=== PATIENT | female | born 1985 | race Caucasian/White ===

== ENCOUNTER 2019-03-14 18:53 | Emergency (ER) | payer MEDICAID ==
[~2019-03-14] VITALS: Ht 167.6 cm; Wt 70.8 kg
[2019-03-14 19:21] VITALS: Ht 167.6 cm; Wt 70.8 kg
[2019-03-14 21:01] LABS: CALCIUM 8.6 mg/dL (8.5-10.1); CARBON DIOXIDE 28.4 mmol/L (21-32); CHLORIDE SERUM 103 mmol/L (98-107); CREATININE SERUM 0.9 mg/dL (0.6-1.0); GFR1 > 60 mL/min; GLUCOSE SERUM 72 mg/dL (74-106); POTASSIUM SERUM 3.7 mmol/L (3.5-5.1); SODIUM SERUM 138 mmol/L (136-145)
[2019-03-14 21:02] LABS: BASOPHIL % 0.5 % (0-2); PLATELET COUNT 261 x10^3mcL (130-400); RED CELL DISTRIBUTION WIDTH 13.9 % (11.5-14.5)
[2019-03-14 21:06] LABS: ALBUMIN 3.4 g/dL (3.4-5.0); ALKALINE PHOSPHATASE 61 U/L (46-116); ALT/SGPT 13 U/L (14-59); AST/SGOT 6 U/L (15-37); BILIRUBIN TOTAL 0.67 mg/dL (0.20-1.00); TOTAL PROTEIN, SERUM 7.6 g/dL (6.4-8.2)
[2019-03-14 21:23] LABS: microscopic required? NO
[2019-03-14 21:30] LABS: UA SPECIFIC GRAVITY 1.025 (1.005-1.035); urine erythrocyte NEGATIVE (NEGATIVE)
[2019-03-15 00:36] VITALS: BP 115/88
== END 2019-03-15 00:36 | disposition home or self-care (01) ==
LOC: ED 18:53
PROVIDERS: Student in an Organized Health Care Education/Training Program
DX: R07.89 Other chest pain (principal); F31.9 Bipolar disorder, unspecified; R11.10 Vomiting, unspecified; R05 Cough; M25.512 Pain in left shoulder; Z98.51 Tubal ligation status; Z88.1 Allergy status to other antibiotic agents
CPT/HCPCS: 83880; 85378; J1885; J2270; J2405; Q0092; Q9967

== ENCOUNTER 2019-07-06 17:02 | Emergency (ER) | payer MEDICAID ==
[~2019-07-06] VITALS: Ht 167.6 cm; Wt 73.9 kg
[2019-07-06 17:14] VITALS: Ht 167.6 cm; Wt 73.9 kg
[2019-07-06 18:30] LABS: BASOPHIL % 0.5 % (0-2); PLATELET COUNT 173 x10^3mcL (130-400); RED CELL DISTRIBUTION WIDTH 13.9 % (11.5-14.5)
[2019-07-06 19:10] VITALS: BP 102/71
== END 2019-07-06 19:10 | disposition home or self-care (01) ==
LOC: ED 17:02
PROVIDERS: Emergency Medicine
DX: N93.8 Other specified abnormal uterine and vaginal bleeding (principal); Z88.1 Allergy status to other antibiotic agents
CPT/HCPCS: 36415